=== PATIENT | female | born 1985 | race Two or more races ===

== ENCOUNTER 2023-06-23 23:45 | Inpatient (IN) ==
[2023-06-24] MEDS ORDERED: DEXAMETHASONE SOD INJ 4 MG/ML VIAL IV STA (00:13)
[2023-06-24] MEDS ORDERED: diphenhydrAMINE 50 MG/ML VIAL IV STA (00:13)
[2023-06-24] MEDS ORDERED: FAMOTIDINE 20MG IV PUSH 20 MG/5 ML SYR IV STA (00:13)
[2023-06-24 00:42] LABS: Albumin Level 3.9 gm/dl (3.4-5.0); BUN Creatinine Ratio 9.3 (10-20); Bilirubin Direct 0.2 mg/dl (0-0.2); Bilirubin,Total 0.8 mg/dl (0.2-1.0); Calcium 9.5 mg/dl (8.6-10.3); Creatinine Clr Calc Pharmacy 68.3 ml/min; Est GFR (African American) 75.7 ml/min; Est GFR (Non-African American) 65.3 ml/min; Magnesium 1.9 mg/dl (1.7-2.4); Total Protein 7.9 gm/dl (6.0-8.3)
[2023-06-24 00:47] LABS: Hematocrit (blood only) 44.1 % (37.0-47.0); Hemoglobin 15.4 g/dl (12.0-16.0); Mean Corpuscular Hemoglobin 31.8 pg (25.0-34.0); Mean Corpuscular Hgb Conc 34.9 g/dL (32.0-36.0); Mean Corpuscular Volume 90.9 fL (80.0-100.0); Mean Platelet Volume 10.7 fL (9.4-12.4); Platelet Count 280 K/uL (130-400); RDW Coefficient of Variation 11.8 % (11.5-14.5); RDW Standard Deviation 39.3 fL (36.4-46.3); Red Blood Count 4.85 M/uL (4.20-5.40); White Blood Count 31.32 K/ul (4.8-10.8)
[2023-06-24 00:48] LABS: Troponin I High Sensitivity 11.6 pg/ml (0-14)
[2023-06-24 00:51] LABS: Basophils # (auto) 0.08 K/uL (0-0.2); Basophils % (auto) 0.3 %; Echinocytes 1+; Eosinophils # (auto) 0.39 K/uL (0-0.50); Eosinophils % (auto) 1.2 %; Immature Granulocytes # (auto) 0.22 K/uL (0.01-0.20); Immature Granulocytes % (auto) 0.7 %; Lymphocytes # (auto) 0.81 K/uL (1.2-3.4); Lymphocytes % (auto) 2.6 %; Monocytes # (auto) 1.45 K/uL (0.11-0.59); Monocytes % (auto) 4.6 %; Neutrophils # (auto) 28.37 K/uL (1.40-6.50); Neutrophils % (auto) 90.6 %; Tear Drop Cells 1+
[2023-06-24 01:06] LABS: Appearance Urine Clear (Clear); Bilirubin Urine Negative (Negative); Blood Urine Negative (Negative); Color Urine Yellow; Glucose Urine UA Negative (Negative); Ketones Urine Negative (Negative); Leukocyte Esterase Urine Negative (Negative); Nitrite Urine Negative (Negative); Protein Urine Negative (Negative); Specific Gravity Urine 1.004 (1.000-1.030); Urobilinogen Urine Negative (Negative)
[2023-06-24] MEDS ORDERED: SODIUM CHLORIDE 0.9% 1000ML 2,000 ML IV ONE (01:08)
[2023-06-24] MEDS ORDERED: VANCOMYCIN CONSULT ACTIVE PRN ×2 (01:09→03:13)
[2023-06-24] MEDS ORDERED: VANCOMYCIN HCL 1,500 MG in SODIUM CHLORIDE 0.9% 500 ML IV ONE (01:09)
[2023-06-24] MEDS ORDERED: OPTIRAY 320 100ml IV ONE (01:32)
--- NOTE | 2023-06-24 02:35 | CT Scan Report ---
Exam(s): CT CHEST With Contrast IV Amt: 93 ml EXAM: CT Chest With Intravenous Contrast CLINICAL HISTORY: eval R chest s/p breast implant(sepsis). TECHNIQUE: Axial computed tomography images of the chest with intravenous contrast. CTDI is 11.67 mGy and DLP is 381.8 mGy-cm. Automated exposure control was utilized for the study. A dose lowering technique was utilized adhering to the principles of ALARA. CONTRAST: Patient received 93 ml of IV contrast COMPARISON: No relevant prior studies available. FINDINGS: Lungs: There are diffuse reticulonodular opacities throughout the lungs with more prominent subsegmental peripheral changes laterally and in the dependent aspect of the lower lungs. There is diffuse interlobular septal thickening. Pleural space: Unremarkable. No pneumothorax. No significant effusion. Heart: Unremarkable. No cardiomegaly. No significant pericardial effusion. No significant coronary artery calcifications. Bones/joints: Unremarkable. No acute fracture. No dislocation. Soft tissues: A right breast implant is noted with a surgical soft tissue drain identified extending circumferentially around the inferior aspect of the implant. There is some residual gas adjacent to the implant and within the pectoralis muscles. However, no hematoma or fluid collection identified. The left breast implant is unremarkable. No immediate postoperative changes noted. No significant abnormality. Vasculature: Unremarkable. No thoracic aortic aneurysm. Lymph nodes: Nonspecific precarinal lymph node measuring 9 mm. No significant axillary lymphadenopathy. IMPRESSION: 1. A right breast implant is noted with a surgical soft tissue drain identified extending circumferentially around the inferior aspect of the implant. There is some residual gas adjacent to the implant and within the pectoralis muscles. However, no hematoma or fluid collection identified. 2. There are diffuse reticulonodular opacities throughout the lungs with more prominent subsegmental peripheral changes laterally and in the dependent aspect of the lower lungs. There is diffuse interlobular septal thickening. The primary consideration is interstitial and alveolar pulmonary edema. However, coexisting alveolitis/pneumonia is also a consideration. Diffuse septic emboli is considered less likely. No lobar consolidation. No pleural effusion or pneumothorax. Electronically signed by: Juvencio Brown MD 06/24/23 02:34 AM
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
[2023-06-24] MEDS ORDERED: PIPERACILLIN/TAZOBACTAM 4.5 GM/120 ML BAG IV STA (03:39)
[2023-06-24] MEDS ORDERED: GLUCOSE 40% GEL 15 GM TUBE PO PRN (04:09)
[2023-06-24] MEDS ORDERED: GLUCAGON FOR INJ 1 MG VIAL SQ PRN (04:09)
[2023-06-24] MEDS ORDERED: ACETAMINOPHEN 325 MG TAB PO PRN (04:09)
[2023-06-24] MEDS ORDERED: CARBOHYDRATES FOR HYPOGLYCEMIA PO PRN (04:09)
[2023-06-24] MEDS ORDERED: DEXTROSE 50% 50 ML SYRINGE IV PRN (04:09)
[2023-06-24] MEDS ORDERED: ONDANSETRON INJ 2 MG/ML 2 ML VIAL IV PRN (04:09)
[2023-06-24] MEDS ORDERED: GLUCOSE 10 TAB/TUBE PO PRN (04:09)
[2023-06-24] MEDS: NSS + 20MEQ KCL 20 MEQ/1,000 ML BAG IV SCH ×3 (04:59→12:42)
[2023-06-24] MEDS: diphenhydrAMINE 50 MG/ML VIAL IV SCH ×2 (05:15→12:15)
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
--- NOTE | 2023-06-24 07:19 | Electrocardiogram Report ---
Test Reason : Blood Pressure : / mmHG Vent. Rate : 095 BPM Atrial Rate : 095 BPM P-R Int : 122 ms QRS Dur : 086 ms QT Int : 338 ms P-R-T Axes : 050 057 043 degrees QTc Int : 424 ms Normal sinus rhythm Normal ECG No previous ECGs available Confirmed by Prosper Garcia ([id number]) on 06/24/2023 7:19:27 AM Referred By: REFERRED SELF Confirmed By:Armando Garcia
[2023-06-24] MEDS ORDERED: PIPERACILLIN/TAZOBACTAM 4.5 GM in DEXTROSE 5% 100 ML IV SCH (08:00)
[2023-06-24] MEDS: INSULIN ASPART PER UNIT CHARGE SC SCH ×4 (08:00→21:36)
--- NOTE | 2023-06-24 08:05 | XRay Report ---
XR chest 1V portable HISTORY: 37 years-old Female Sepsis acute shortness of breath COMPARISON: Chest CT of same day TECHNIQUE: AP view of the chest FINDINGS: Bilateral breast implants are present with a right-sided surgical drain. Small pleural effusions with bilateral mixed interstitial and alveolar opacities. Mild asymmetric right hilar prominence. The car diac silhouette is normal. No pneumothorax. Bones appear grossly intact. IMPRESSION: 1. Diffuse bilateral mixed interstitial and alveolar opacities suggestive of a combination of pulmona ry edema with a nonspecific pneumonitis. Follow-up recommended. 2. Small pleural effusions. 3. Right hilar lymphadenopathy. 4. Bilateral breast implants with right chest wall surgical drain. ACT 112: Negative or not required by law. The above report was generated using voice recognition software. It may contain grammatical, syntax o r spelling errors. Electronically signed by: Mp Ashby M.D. 06/24/2023 8:03 AM
[2023-06-24] MEDS ORDERED: VANCOMYCIN HCL 750 MG in SODIUM CHLORIDE 0.9% 250 ML IV SCH (10:00)
[2023-06-24] MEDS: FAMOTIDINE 20 MG in SYRINGE 3 ML IV SCH ×2 (10:29→20:27)
[2023-06-24] MEDS: dexAMETHasone 6 MG in SYRINGE 0 ML IV SCH ×3 (10:29→23:01)
--- NOTE | 2023-06-24 11:12 | Pharmacy Report ---
Pharmacy PK ABX Note - Date of Service June 24, 2023 - Assessment and Plan Assessment 37 year old F receiving vancomycin/zosyn for treatment of post-op infection/possible PNA. Patient WBC 31.32 with left shift, procal 0.63. Recent breast augmentation 5 days prior. Placed on minocycline/bactrim outpatient with possible allergic reaction with worsening facial swelling. Pertinent microbiologic data includes: Blood cultures pending Day # 1 of antimicrobial therapy. Plan Vancomycin * Loading dose: 1500 mg IV x 1 * Maintenance dose: 750 mg IV every 12 hours * Regimen is predicted to achieve target AUC/FAY of 400-600 mg/L.hr * Random level ordered for 8/7 AM Pharmacy will continue to follow and will adjust dose/frequency as necessary. Thank you. Pharmacy has transitioned to AUC monitoring for vancomycin. AUC/FAY is the preferred PK/PD target and is associated with decreased risk of nephrotoxicity compared to traditional trough targets.
[2023-06-24] MEDS ORDERED: FUROSEMIDE INJ 20 MG/2 ML VIAL IV ONE (12:31)
[2023-06-24] MEDS ORDERED: AZITHROMYCIN 250 MG TAB PO ONE (12:31)
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
[2023-06-24] MEDS: ALBUT/IPRATROP 3MG/0.5MG NEB 3 ML VIAL NEB PRN ×2 (16:57→21:22)
[2023-06-24] MEDS ORDERED: diphenhydrAMINE 50 MG/ML VIAL IV SCH (21:00)
[2023-06-24] MEDS ORDERED: LORazepam 2 MG/1 ML VIAL IV STA (23:55)
[2023-06-25] MEDS: ALBUT/IPRATROP 3MG/0.5MG NEB 3 ML VIAL NEB PRN ×2 (01:26→20:18)
[2023-06-25 06:56] LABS: Hemoglobin 12.3 g/dl (12.0-16.0); Mean Corpuscular Hemoglobin 31.4 pg (25.0-34.0); Mean Corpuscular Hgb Conc 34.2 g/dL (32.0-36.0); Mean Corpuscular Volume 91.8 fL (80.0-100.0); Mean Platelet Volume 12.4 fL (9.4-12.4); Platelet Count 223 K/uL (130-400); RDW Coefficient of Variation 11.8 % (11.5-14.5); RDW Standard Deviation 39.8 fL (36.4-46.3); Red Blood Count 3.92 M/uL (4.20-5.40); White Blood Count 26.83 K/ul (4.8-10.8)
[2023-06-25 07:10] LABS: Basophils # (auto) 0.04 K/uL (0-0.2); Basophils % (auto) 0.1 %; Echinocytes 2+; Eosinophils # (auto) 0.03 K/uL (0-0.50); Eosinophils % (auto) 0.1 %; Immature Granulocytes # (auto) 0.19 K/uL (0.01-0.20); Immature Granulocytes % (auto) 0.7 %; Lymphocytes # (auto) 0.54 K/uL (1.2-3.4); Monocytes % (auto) 2.6 %; Neutrophils # (auto) 25.33 K/uL (1.40-6.50); Neutrophils % (auto) 94.5 %
[2023-06-25 07:25] LABS: BUN Creatinine Ratio 23.9 (10-20); C Reactive Protein 15.29 mg/dl (0-0.5); Calcium 8.7 mg/dl (8.6-10.3); Creatinine Clr Calc Pharmacy 102.9 ml/min; Est GFR (African American) 124.4 ml/min; Est GFR (Non-African American) 107.3 ml/min; Potassium 3.8 mmol/L (3.5-5.1)
[2023-06-25 08:16] LABS: Estimated Average Glucose 114 mg/dl; Hemoglobin A1C 5.6 % (4.5-5.6)
[2023-06-25] MEDS ORDERED: diphenhydrAMINE 50 MG/ML VIAL IV STA (09:15)
[2023-06-25] MEDS: dexAMETHasone 6 MG in SYRINGE 0 ML IV SCH (09:23)
--- NOTE | 2023-06-25 09:34 | Hospitalist Progress Note ---
Date of Service June 25, 2023 Assessment & Plan (1) Allergic reaction caused by a drug: Plan: -Suspect pt's symptoms were likely due to sulfa drug allergy- anaphylactic response -Pt is improving and no longer acutely anaphylactic, residual symptoms improving on today's exam -Dexamethasone switched to prednisone 40 mg today, we will taper steroids -Continue famotidine for ulcer prophylaxis -Benadryl Hs transitioned to PRN -Allergy/immunology referral as outpatient (2) Hypoxia: Plan: Acute hypoxic respiratory failure -CXR + chest CT demonstrating airspace opacities representing pulmonary edema +/- pneumonitis/pneumonia -Likely vasodilatory-mediated pulmonary edema 2/2 allergic reaction -Did receive Lasix x1 on 06/24 -Continue azithromycin 250 mg, day 12/24 -Increasing O2 requirement on 06/25- repeat CXR demonstrating slight increase in airspace opacities -PCT and CRP downtrending, pt afebrile -Suspect degree of atelectasis contributing- will order incentive spirometry -Attempt wean to RA, otherwise will need 2 step prior to d/c for home O2 need (3) Neutrophilic leukocytosis: Plan: -Leukocytosis 31 to 27 today -Likely 2/2 demargination, anaphylaxis, steroid administration -Low suspicion for acute surgical site infection or bacterial pneumonia -Vancomycin + Zosyn discontinued on 06/24, continue azithromycin 250 mg (day 12/24) for atypical/anti-inflammatory effect as above (4) H/O breast augmentation: Plan: -Stable, low suspicion for acute postoperative surgical site infection -Continue to monitor wound + drainage Plan FENGI: Regular Code status: Full DVT prophylaxis: Ambulation Isolation: None Disposition: Downgrade to medical/surgical Admission and Anticipated Discharge Date Admission Date: June 24, 2023 Supervising Physician Co-Signing Physician Notes Attending attestation Pt seen and examined in concert with Dr. Lin. In agreement with the documented findings as noted in the resident documentation with any exceptions or additions as noted here. Ongoing pain at the chest with deep inspiration and coughing though controlled on present medication. On examination, S1/S2 nl RRR no MCG. Decreased BS at bilateral bases. Abd NT/ND BS+ve Drug hypersensitivity reaction - transition to PO prednisone today and medicati on management as noted. Acute hypoxic respiratory failure - likely 2/2 vasodilatory edema vs. pNA - continue azithromycin to complete course, monitor with repeat CXR today. Down titrate O2 as tolerated but encourage ambulation Else see resident documentation as noted. Subjective Acute events overnight- none. Pt examined at bedside. Reports improvement in breathing, face/lip swelling. Does have dyspnea when off oxygen. Mild soreness around her incision site of breast augmentation, no other acute complaints. Review of Systems Review of Systems: Per HPI/Subjective Physical Exam Physical Exam: General: tired-appearing, no acute distress HEENT: conjunctivae clear without injection, anicteric sclerae, moist mucous membranes, clear oropharynx without exudate or erythema, edematous cheeks b/l, lower eyelids b/l and lips Neck: supple, trachea midline, no JVD, no cervical lymphadenopathy CV: RRR, normal S1 and S2, no murmurs Resp: Mild expiratory wheezes, no increased work of breathing, no crackles Abd: Soft, nontender, nondistended, no guarding or rebound, no hepatosplenomegaly Skin: no rashes or lesions, warm and dry Ext: no LE peripheral edema or erythema, capillary refill <2s in all four extremities, 2+ LE peripheral pulses b/l Results & Data Results & Data Vital Signs (Past 12 Hours) Vital Signs Temp Pulse Pulse Resp BP BP Pulse Ox 06/25/23 07:54 36.7 C 84 22 93/60 L 94 06/25/23 07:26 89 06/25/23 03:33 36.6 C 92 H 18 94/56 L 91 06/25/23 01:26 89 18 92 06/24/23 21:59 88 06/24/23 22:38 36.8 C 93 H 19 96/59 L 92 O2 Del Method O2 Flow Rate 06/25/23 07:54 Nasal Cannula 4 06/25/23 07:26 06/25/23 03:33 Nasal Cannula 3 06/25/23 01:26 Nasal Cannula 5 06/24/23 21:59 06/24/23 22:38 Nasal Cannula 3 Resident Activity Tracking Resident Involvement: Resident Care Provided Care Provided: Adult Hospital Medicine (1) Allergic reaction caused by a drug Encounter type: initial encounter Qualified Code(s): T78.40XA - Allergy, unspecified, initial encounter
[2023-06-25] MEDS: AZITHROMYCIN 250 MG TAB PO SCH (09:47)
[2023-06-25] MEDS: predniSONE 20 MG TAB PO SCH (09:48)
[2023-06-25] MEDS: INSULIN ASPART PER UNIT CHARGE SC SCH ×4 (09:48→20:44)
[2023-06-25] MEDS: FAMOTIDINE 20 MG in SYRINGE 3 ML IV SCH (09:53)
--- NOTE | 2023-06-25 10:04 | XRay Report ---
KUB CLINICAL HISTORY: Generalized abdominal pain. FINDINGS: AP, portable, supine abdominal radiograph is obtained. No prior studies are available for c omparison at the time of dictation. There is a nonobstructed abdominal bowel gas pattern. No evidence of intraperitoneal free air is seen on this supine image. There are no abnormal abdominal calcificat ions. A naval piercing is observed. The bony structures appear intact. IMPRESSION: No acute abnormality is identified. Electronically signed by: Carmelo Sandhu M.D. 06/25/2023 10:01 AM
--- NOTE | 2023-06-25 10:30 | XRay Report ---
XR chest 1V portable CLINICAL HISTORY: increasing O2 requirement TECHNIQUE: Single frontal radiograph of the chest was obtained. Comparison: Comparison is made to chest radiograph 06/24/2023 FINDINGS: No lines and tubes are seen. The cardiomediastinal silhouette is normal. Airspace opacities are seen in the lower lungs. No evidence of pleural effusion or pneumothorax. IMPRESSION: Airspace opacities in the lower lungs are compatible with infectious/inflammatory process, likely sli ghtly increased in conspicuity from prior exam. ACT 112: Negative or not required by law. Electronically signed by: Luis Nelson M.D. 06/25/2023 10:28 AM
[2023-06-25] MEDS ORDERED: diphenhydrAMINE Capsule 25 MG CAP PO PRN (15:49)
[2023-06-25] MEDS: FAMOTIDINE 20 MG TAB PO SCH (20:45)
[2023-06-25] MEDS ORDERED: LORazepam 2 MG/1 ML VIAL IV STA (21:00)
[2023-06-26] MEDS ORDERED: LORazepam 2 MG/1 ML VIAL IV STA (01:00)
[2023-06-26 07:34] LABS: Basophils # (auto) 0.06 K/uL (0-0.2); Basophils % (auto) 0.4 %; Eosinophils # (auto) 1.08 K/uL (0-0.50); Eosinophils % (auto) 6.6 %; Hematocrit (blood only) 35.8 % (37.0-47.0); Hemoglobin 12.1 g/dl (12.0-16.0); Immature Granulocytes # (auto) 0.09 K/uL (0.01-0.20); Immature Granulocytes % (auto) 0.6 %; Lymphocytes # (auto) 1.81 K/uL (1.2-3.4); Lymphocytes % (auto) 11.1 %; Mean Corpuscular Hemoglobin 31.3 pg (25.0-34.0); Mean Corpuscular Hgb Conc 33.8 g/dL (32.0-36.0); Mean Corpuscular Volume 92.7 fL (80.0-100.0); Monocytes # (auto) 0.84 K/uL (0.11-0.59); Monocytes % (auto) 5.1 %; Neutrophils # (auto) 12.46 K/uL (1.40-6.50); Neutrophils % (auto) 76.2 %; Platelet Count 300 K/uL (130-400); RDW Coefficient of Variation 12.3 % (11.5-14.5); RDW Standard Deviation 41.8 fL (36.4-46.3); Red Blood Count 3.86 M/uL (4.20-5.40); White Blood Count 16.34 K/ul (4.8-10.8)
[2023-06-26 07:59] LABS: BUN Creatinine Ratio 24.2 (10-20); Calcium 8.7 mg/dl (8.6-10.3); Creatinine Clr Calc Pharmacy 110.7 ml/min; Est GFR (Non-African American) 111.3 ml/min; Potassium 3.5 mmol/L (3.5-5.1)
[2023-06-26] MEDS: INSULIN ASPART PER UNIT CHARGE SC SCH ×2 (08:49→13:01)
[2023-06-26] MEDS: FAMOTIDINE 20 MG TAB PO SCH ×2 (08:50→08:53)
[2023-06-26] MEDS: AZITHROMYCIN 250 MG TAB PO SCH (08:50)
[2023-06-26] MEDS: predniSONE 20 MG TAB PO SCH (08:50)
--- NOTE | 2023-06-26 11:21 | Hospitalist Progress Note ---
Date of Service June 26, 2023 Assessment & Plan (1) Allergic reaction caused by a drug: Plan: -Suspect pt's symptoms were likely due to sulfa drug allergy- anaphylactic response -Pt is improving and no longer acutely anaphylactic, residual symptoms further improved on today's exam -Dexamethasone switched to prednisone 40 mg on 06/25, continue with taper -Continue famotidine for ulcer prophylaxis -Benadryl 25 mg PO PRN -Allergy/immunology referral as outpatient (2) Hypoxia: Plan: Acute hypoxic respiratory failure -CXR + chest CT demonstrating airspace opacities representing pulmonary edema +/- pneumonitis/pneumonia -Likely vasodilatory-mediated pulmonary edema 2/2 allergic reaction -Did receive Lasix x1 on 06/24 -Continue azithromycin 250 mg, day 12/24 -Increasing O2 requirement on 06/25- repeat CXR demonstrating slight increase in airspace opacities -PCT and CRP downtrending, pt afebrile -Suspect degree of atelectasis contributing- will order incentive spirometry -Attempt wean to RA, otherwise will need 2 step prior to d/c for home O2 need (3) Neutrophilic leukocytosis: Plan: -Leukocytosis 31 to 27 today -Likely 2/2 demargination, anaphylaxis, steroid administration -Low suspicion for acute surgical site infection or bacterial pneumonia -Vancomycin + Zosyn discontinued on 06/24, continue azithromycin 250 mg (day 12/24) for atypical/anti-inflammatory effect as above (4) H/O breast augmentation: Plan: -Stable, low suspicion for acute postoperative surgical site infection -Continue to monitor wound + drainage Plan FENGI: Regular Code status: Full DVT prophylaxis: Ambulation Isolation: None Disposition: Downgrade to medical/surgical Admission and Anticipated Discharge Date Admission Date: June 24, 2023 Subjective Acute events overnight- pt did have considerable anxiety after being transferred outside of private room. She did receive 0.25 mg Ativan and anxiety improved. Pt examined at bedside. Reports improvement in breathing, face/lip swelling. Weaned to 2L NC. Less dyspnea off oxygen. She states she is interested in inpatient psychiatric stay but would prefer to be discharged home and return afterward. She denies SI, intent or plan at present. Still reports feeling very overwhelmed by recent life stressors including of father. Review of Systems Review of Systems: Per HPI/Subjective Physical Exam Physical Exam: General: tired-appearing, anxious HEENT: conjunctivae clear without injection, anicteric sclerae, moist mucous membranes, clear oropharynx without exudate or erythema, improvement in edematous cheeks b/l, lower eyelids b/l and lips Neck: supple, trachea midline, no JVD, no cervical lymphadenopathy CV: RRR, normal S1 and S2, no murmurs Resp: Largely clear though mildly diminished at bases, no increased work of breathing, no crackles or wheezes Abd: Soft, nontender, nondistended, no guarding or rebound, no hepatosplenomegaly Skin: no rashes or lesions, warm and dry Ext: no LE peripheral edema or erythema, capillary refill <2s in all four extremities, 2+ LE peripheral pulses b/l Results & Data Results & Data Vital Signs (Past 12 Hours) Vital Signs Temp Pulse Pulse Resp BP Pulse Ox O2 Del Method 06/26/23 08:45 Nasal Cannula 06/26/23 07:45 72 06/26/23 07:41 36.5 C 61 18 89/57 L 96 Nasal Cannula 06/25/23 23:21 36.6 C 78 18 122/73 97 Nasal Cannula O2 Flow Rate 06/26/23 08:45 2 06/26/23 07:45 06/26/23 07:41 2 06/25/23 23:21 2 (1) Allergic reaction caused by a drug Encounter type: initial encounter Qualified Code(s): T78.40XA - Allergy, unspecified, initial encounter
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
--- NOTE | 2023-06-26 14:24 | Discharge Summary ---
Date of Service June 26, 2023 Admission HPI Per Admitting Provider The patient is a 37-year-old female with a past medical history including breast implants x3 and removal x2, with most recent implant performed in [place] about 5 days ago. She presented to the emergency department with drain in place draining serosanguineous fluid. She denied any difficulty with swallowing, but did have some difficulty with speech due to swelling of her tongue and lips. She was noted by the ED to be having a borderline low blood pressure, which did respond to 2 L normal saline bolus From the ED the patient received the following: Benadryl 25 mg IV, famotidine 20 mg IV, dexamethasone 10 mg IV, normal saline 2 L bolus, and vancomycin IV. Admission Exam Per Admitting Provider The patient is awake, alert and oriented 3, erythema and swelling over right frontal area, left maxillary area, lips and tongue. She is otherwise lying in bed and in no acute distress. HEENT--PERRL, EOMI, lips and tongue swelling Neck--supple. No JVD. No bruits. Thyroid normal, trachea midline, no adenopathy. Heart--normal S1 and S2. No murmurs, rubs or gallops. Lungs--few coarse breath sounds bilaterally, no respiratory distress, no a ccessory muscle use. Abdomen--normal bowel sounds and soft. Nontender. Nondistended, no hernias or masses, no organomegaly. Extremities--no cyanosis or clubbing. No edema. Dermatologic--see above Neurologic--cranial nerves II through XII grossly intact. Rheumatologic--normal range of motion. Psychiatric--normal affect. Principal Diagnosis drug hypersensitivity reaction Discharge Exam General: tired-appearing, anxious HEENT: conjunctivae clear without injection, anicteric sclerae, moist mucous m embranes, clear oropharynx without exudate or erythema, improvement in edematous cheeks b/l, lower eyelids b/l and lips Neck: supple, trachea midline, no JVD, no cervical lymphadenopathy CV: RRR, normal S1 and S2, no murmurs Resp: Largely clear though mildly diminished at bases, no increased work of breathing, no crackles or wheezes Abd: Soft, nontender, nondistended, no guarding or rebound, no he patosplenomegaly Skin: no rashes or lesions, warm and dry Ext: no LE peripheral edema or erythema, capillary refill <2s in all four extremities, 2+ LE peripheral pulses b/l Discharge Data Allergies Allergy/AdvReac Type Severity Reaction Status Date / Time Sulfa (Sulfonamide Allergy Severe Anaphylaxis Verified 06/25/23 00:09 Antibiotics) Consultations 06/24/23 02:04 ED Decision to Admit Stat 06/25/23 18:58 Consult Behavioral Health Liaison Routine 06/26/23 07:07 Consult Psychiatry Routine Ordered Studies 06/24/23 01:07 CT chest with contrast [CT chest diagnostic w con] Stat Hospital Course (1) Allergic reaction caused by a drug: -Suspect pt's symptoms were likely due to sulfa drug allergy- anaphylactic response -Pt is improving and no longer acutely anaphylactic, residual symptoms further improved on today's exam -Dexamethasone switched to prednisone 40 mg on 06/25, continue with taper on discharge -Continue famotidine for ulcer prophylaxis on discharge -Benadryl 25 mg PO PRN, can continue on discharge -Allergy/immunology referral as outpatient (2) Hypoxia: Acute hypoxic respiratory failure -CXR + chest CT demonstrating airspace opacities representing pulmonary edema +/- pneumonitis/pneumonia -Likely vasodilatory-mediated pulmonary edema 2/2 allergic reaction -Did receive Lasix x1 on 06/24 -Continue azithromycin 250 mg to finish 5 days total -Improvement of O2 requirement, passed 2 step with no home O2 needs on day of discharge -PCT and CRP downtrending, pt afebrile -Suspect degree of atelectasis contributing- recommended breathing exercises to continue at home (3) Neutrophilic leukocytosis: -Leukocytosis 27 to 16 today -Likely 2/2 demargination, anaphylaxis, steroid administration -Low suspicion for acute surgical site infection or bacterial pneumonia -Vancomycin + Zosyn discontinued on 06/24, continue azithromycin 250 mg to finish 5 days for atypical/anti-inflammatory effect as above (4) H/O breast augmentation: -Stable, low suspicion for acute postoperative surgical site infection -Continue to monitor wound + drainage -F/u at PCP for drain removal Total Time Total Time Spent Total Time Spent (In Minutes): 30 Discharge Plan Discharge Items Patient Disposition: Home - Self-Care Reason For Visit: ALLERGIC REACTION TO MEDICATION, POST-OP INFECTION Discharge Diagnosis: Drug hypersensitivity reaction Activity: Resume your previous activity Non-emergency contact: Primary Care Provider Call non-emergency contact if: your symptoms worsen Follow-up/Referrals: Jami Patel M.D. [Primary Care Provider] - (PLEASE CALL YOUR PRIMARY CARE PROVIDER TO SCHEDULE A DISCHARGE FOLLOW-UP APPOINTMENT WITHIN 7-10 DAYS) Doris Walton MD [Physician] - Diet: Regular Addtl Attending Provider Instructions: You were admitted to the hospital for drug reaction to Bactrim. You were treated with steroids, Benadryl and fluids/oxygen. The chest X ray showed some inflammation/pneumonitis which was thought to be due to the drug allergy. The respiratory therapy walk test thankfully showed that you do not require home oxygen. To help clear the rest of the inflammation from your lungs, please use the incentive spirometer or O2 assistant athletic trainer for breathing/lung exercises and try to remain active. A discharge summary will be sent to your primary care physician to ensure continuity of care. Please bring this discharge summary with you to your next office appointment so that your provider can review it at that time. Follow-up appointments: - Make a follow-up appointment with your PCP within the next week. It is very important that you follow up with them shortly after discharge from the hospital. Dr. Patel can remove the drain at the office. Please keep the dressing dry until your follow- up. Medications: Your medication list has been reviewed and reconciled upon discharge to ensure accuracy and continuity of care. An updated list of all your medications is included with your hospital discharge paperwork. Please review this list closely, and make note of any changes. -We sent a new medication called azithromycin to the pharmacy. You will take azithromycin for 2 more days to complete 5 days of therapy. This is treating the pneumonitis from the drug allergy. -We sent prednisone to the pharmacy. You will take prednisone in the following schedule to complete a taper for the pneumonitis/drug allergy reaction. These are 10 mg tablets and you will receive 18 tablets to help complete the course. Take prednisone with food and please take Pepcid OTC twice daily while on prednisone to prevent ulcer formation. -8/- prednisone 30 mg -06/28- prednisone 30 mg -06/29- prednisone 30 mg -06/30- prednisone 20 mg -07/01- prednisone 20 mg -07/02- prednisone 20 mg -15- prednisone 10 mg -07/04- prednisone 10 mg -07/05- prednisone 10 mg Take your medications as instructed; do not skip a dose of your medicines. Make sure all of your doctors know every medicine you are taking (including auvr-ami-lnollbt m edicines, vitamins, and supplements). Call your primary care provider before taking any new medicines (including fgkm-txp-kdonous medicines, vitamins, and supplements), because some of these may interact with your current medications, or may make your symptoms worse. Tell your primary care provider if you cannot afford your medications. CONTACT YOUR PRIMARY CARE PROVIDER if you experience any of the following: -Shortness of breath -Dizziness/lightheadedness -Chest pain - Difficulty following your treatment plan, or difficulty taking medications CALL 911 OR GO TO THE EMERGENCY DEPARTMENT if you experience any of the following: - Sudden, severe abdominal pain or nausea/vomiting - Severe chest pain, or chest pain that radiates (moves) to your jaw or arm - Sudden, severe shortness of breath or difficulty breathing Thank you for allowing us to participate in your care Pending Studies at Discharge: No Stand-Alone Forms: My [facility] Medications and DC Order Prescriptions: New azithromycin 250 mg tablet 250 mg PO DAILY 2 Days Qty: 2 0RF Rx Instructions: Take 1 tab by mouth tomorrow and . prednisone 10 mg tablet 10 mg PO DAILY Qty: 18 0RF Rx Instructions: Take 3 tabs for 3 days, 2 tabs for 3 days, and 1 tab for 3 days (18 tabs total) Continued sertraline 50 mg Tablet 75 mg PO DAILY Discharge Orders: Discharge Order (Routine); Ordered 06/26/23 Ordered By: Flora Lin Admission Data Admit Date/Time: 06/24/23 02:39 Attending Provider: Kevon Nye Admit Provider: Reggie Peck Primary Care Provider: Jami Patel Other Providers: Reggie Peck ; Brigida Salinas ; Kayla Francis ; Corbin Wright Other Interventions: Discharge Summary Assessment (RN) Last Done: 06/26/23 14:29 Supervising Physician Co-Signing Physician Notes Attending attestation Pt seen and examined in concert with Dr. Lin. In agreement with the documented findings as noted in the resident documentation with any exceptions or additions as noted here. Ongoing improvement in cough and shortness of breath with resolving fatigue. On examination, S1/S2 nl RRR no MCG. CTAB. Abd NT/ND BS+ve Anaphylactic response to medication, suspected sulfa allergy - complete prednisone taper as below with ongoing famotiidine and PRN diphenhydratmine AHRF - resolved on day of discharge - complete course of abx as more likely 2/2 vasodilatory- mediated pulmonary edema Else see resident documentation as noted. Total attending physician time spent with this patient's care on the day of discharge: 35 minutes. Resident Activity Tracking Resident Involvement: Resident Care Provided Care Provided: Adult Hospital Medicine
== END 2023-06-26 16:17 | disposition home or self-care (01) | DRG 915 ==
LOC: ED 23:45 → EDINP 06-24 02:39 → SUATTDRO 06-24 02:39 → 2S 06-24 04:10 → 3N 06-25 18:34 → 2N 06-25 23:05